=== PATIENT | male | born 1945 | race Caucasian/White ===

== ENCOUNTER → 2016-09-21 | Outpatient (REF) | LOC: ZLAB.WCH 15:11 | DX: Z01.89 Encounter for other specified special examinations (principal) ==

== ENCOUNTER → 2017-10-07 | Outpatient (REF) | LOC: ZLAB.WCH 18:11 | DX: Z01.89 Encounter for other specified special examinations (principal) ==

== ENCOUNTER → 2018-10-14 | Outpatient (REF) ==
[2018-10-14 16:07] LABS: PSA-TOTAL 4.34 ng/mL (0-4)
[2018-10-14 16:41] LABS: THYROID STIMULATING HORMONE 1.46 uIU/mL (0.465-4.680)
== END ==
LOC: ZLAB.WCH 15:08
PROVIDERS: Internal Medicine
DX: Z01.89 Encounter for other specified special examinations (principal)
CPT/HCPCS: G0103

== ENCOUNTER 2019-07-17 05:29 | Day surgery (SDC) | payer MEDICARE, OTHER ==
[~2019-07-17] VITALS: Ht 175.3 cm; Wt 62.5 kg
[2019-07-17] MEDS ORDERED: SINEMET 25/101 UDTAB PO (06:16)
[2019-07-17] MEDS ORDERED: [UNRECOGNIZED DRUG - OTHER] IM (06:20)
[2019-07-17] MEDS ORDERED: ERGOCALCIFER50000 IU PO (06:22)
[2019-07-17] MEDS ORDERED: ATROPINE 2 ML2 ML OU (06:24)
[2019-07-17] MEDS ORDERED: SYSTANE 0.4%-0.1 SOL OP (06:26)
[2019-07-17 06:48] VITALS: BP 148/71; PULSE 66; TEMP 98
[2019-07-17] MEDS ORDERED: ULTRAM 50MG TAB50 MG PO (08:59)
[2019-07-17 09:45] VITALS: BP 144/88; PULSE 57; TEMP 97.4
[2019-07-17 10:00] VITALS: BP 155/87; PULSE 61
[2019-07-17 10:15] VITALS: BP 152/81; PULSE 58
[2019-07-17 10:30] VITALS: BP 152/82; PULSE 55
[2019-07-17 10:55] VITALS: BP 146/81; PULSE 58; TEMP 97.8
--- NOTE | 2019-07-17 11:59 | NUR ---
PT RETURNED FROM OR INTO BAY#1. PT ALERT AND ORIENTATED, BANDAIDS X3 INTACT TO ABDOMEN.SMALL AMOUNT OF LIGHT RED DRAINAGE NOTED ON 2ND BANDAID. OTHER 2 BANDAIDS ARE CLEAN, DRY AND INTACT. LUNGS CLEAR, HRR, BOWEL SOUNDS PRESENT AND ACTIVE. VSS, HR SINUS AND FLAQUITA. AFEBRILE. AT BEDSIDE, PT REQUESTING TOAST, APPLESAUCE AND COFFEE. CALL LIGHT IN REACH.
--- NOTE | 2019-07-17 12:09 | NUR ---
PT TOLERATING TOAST AND APPLESAUCE AND COFFEE. RATES PAIN AT A 1 ON A 0-10 SCALE. DRESSINGS REMAIN INTACT AND DRY, WITH THE EXCEPTION OF THE DRIED RED DRAINAGE ON BANDAID #2. VITAL SIGNS STABLE. PT O2 SATS AT 89% ON RA. PT DENIES BEING SHORT OF BREATH. LUNGS CLEAR, TOOK A FEW DEEP BREATHS AND SATS INCREASED TO MID 90%. IN ROOM, TALKING WITH PATIENT. CALL LIGHT IN REACH.
--- NOTE | 2019-07-17 12:16 | NUR ---
PT TOLERATING FOOD AND FLUIDS. O2 SATS MAINTAINED IN THE 90'S ON RA. VSS. ABDOMINAL INCISIONAL DRESSING (BANDAIDS) X3 ARE INTACT AND DRY. SCROTAL SUPPORT REMAINS IN PLACE SINCE SURGERY. DENIES PAIN OR DISCOMFORT AT THIS TIME. IV DC'D TO RIGHT FOREARM WITHOUT DIFFICULTY. DISCHARGE INSTRUCTIONS EXPLAINED, RETURN [address] ROHAN MADE, SCRIPT GIVEN TO PATIENT. DENIES FURTHER EXPLANATION. PT DICHARGED OUT TO FAMILY VEHICLE THROUGH PATIENT ENTRANCE. DRIVING.
== END 2019-07-17 11:15 | disposition home or self-care (01) ==
LOC: SDCO 05:29
DX: K40.90 Unilateral inguinal hernia, without obstruction or gangrene, not specified as recurrent (principal); Z12.11 Encounter for screening for malignant neoplasm of colon; Z86.010 Personal history of colon polyps; K57.90 Diverticulosis of intestine, part unspecified, without perforation or abscess without bleeding; Z79.899 Other long term (current) drug therapy; G47.33 Obstructive sleep apnea (adult) (pediatric); G20 Parkinson's disease; E05.00 Thyrotoxicosis with diffuse goiter without thyrotoxic crisis or storm; M85.80 Other specified disorders of bone density and structure, unspecified site; N40.0 Benign prostatic hyperplasia without lower urinary tract symptoms; E53.8 Deficiency of other specified B group vitamins; Z90.3 Acquired absence of stomach [part of]; Z80.6 Family history of leukemia; Z88.2 Allergy status to sulfonamides; Z87.891 Personal history of nicotine dependence; H04.129 Dry eye syndrome of unspecified lacrimal gland; L40.50 Arthropathic psoriasis, unspecified; G70.9 Myoneural disorder, unspecified
CPT/HCPCS: 49650; G0105; C1781; J0690; J1100; J1885; J2250; J2405; J2704; J3010; J7120